=== PATIENT | female | born 1940 | race Caucasian/White ===

== ENCOUNTER 2016-05-02 08:39 | Emergency (ER) | payer MEDICARE, MEDICAID ==
[2016-05-02 10:12] LABS: ABSOLUTE NEUTROPHIL COUNT 3.9 K/mm3 (1.8-7.7); BASO % 0.2 % (0.2-1.0); HEMATOCRIT 32.4 % (37.0-47.0); HEMOGLOBIN 10.7 gm/l (12.0-16.0); IMM NEUT% 0.4 % (0-1); LYMPH % 18.7 % (15-45); MEAN CELL VOLUME 92.3 fl (81.0-99.0); MEAN CORPUSCULAR HEMOGLOBIN 30.5 pg (27.0-31.0); MONO # 0.3 (0.0-0.8); MONO % 5.4 % (4-12); NEUT % 75.3 % (43-75); PLATELET COUNT 163 K/mm3 (130-400); RED CELL DISTRIBUTION WIDTH 13.5 % (11.5-14.5)
[2016-05-02 10:29] LABS: INR 0.96; PROTHROMBIN TIME 10.1 SECONDS (9.3-11.4)
[2016-05-02 10:36] LABS: ALB/GLOB RATIO 1.8 (>1.0); ALBUMIN 3.8 gm/dL (3.5-5.7); CALCIUM 9.3 mg/dL (8.6-10.3)
--- NOTE | 2016-05-02 11:21 | CT ---
Exam: CT head without contrast COMPARISON: Multiple similar previous exams, the most recent of which was obtained on 04/06/2015 INDICATION: Left-sided weakness. TECHNIQUE: CT examination of the head was obtained without contrast. FINDINGS: There is no acute intracranial hemorrhage. There is no abnormal intra or extra-axial fluid collection. Cortical ov[place]o-white matter differentiation is maintained and there is no mass effect or midline shift. There is mild to moderate global atrophy. There is minor prominence of the ventricles which is unchanged. Small area of hypodensity just lateral to the caudate head is noted and unchanged, most compatible with remote lacunar infarct. Basal ganglia calcifications are seen. The paranasal sinuses and mastoid air cells are well aerated. IMPRESSION: No acute intracranial hemorrhage or CT evidence for acute ischemia. Report was uploaded to the EMR at 1117 hours 05/02/2016.
[2016-05-02 11:45] LABS: PH,URINE 6.5 (5.0-8.0); SPECIFIC GRAVITY 1.005 (1.001-1.030); URINE BILIRUBIN NEGATIVE (NEGATIVE); URINE BLOOD NEGATIVE (NEGATIVE); URINE GLUCOSE (UA) NEGATIVE (NEGATIVE); URINE LEUKOCYTE ESTERASE NEGATIVE (NEGATIVE); URINE NITRITE NEGATIVE (NEGATIVE); URINE PROTEIN NEGATIVE (NEGATIVE); URINE UROBILINOGEN NORMAL (0-1 mg/dl)
[2016-05-02 11:46] LABS: URINE APPEARANCE CLEAR; URINE COLOR YELLOW
== END 2016-05-02 12:45 | disposition home or self-care (01) ==
LOC: ED 08:39
DX: R20.0 Anesthesia of skin (principal); J43.9 Emphysema, unspecified; I25.2 Old myocardial infarction; E11.9 Type 2 diabetes mellitus without complications; Z79.84 Long term (current) use of oral hypoglycemic drugs

== ENCOUNTER 2016-06-02 19:19 | Emergency (ER) | payer MEDICARE, MEDICAID ==
[2016-06-02 21:04] LABS: ABSOLUTE NEUTROPHIL COUNT 2.8 K/mm3 (1.8-7.7); BASO % 0.2 % (0.2-1.0); HEMATOCRIT 29.8 % (37.0-47.0); HEMOGLOBIN 9.7 gm/l (12.0-16.0); IMM NEUT% 0.2 % (0-1); LYMPH # 1.5 (1.0-4.8); LYMPH % 32.1 % (15-45); MEAN CELL VOLUME 92.3 fl (81.0-99.0); MEAN CORPUSCULAR HGB CONC 32.6 g/dl (33.0-37.0); MEAN PLATELET VOLUME 9.2 fl (7.4-10.4); MONO # 0.3 (0.0-0.8); MONO % 7.4 % (4-12); NEUT % 60.1 % (43-75); PLATELET COUNT 151 K/mm3 (130-400); RED CELL DISTRIBUTION WIDTH 12.9 % (11.5-14.5)
[2016-06-02 21:38] LABS: ALB/GLOB RATIO 1.8 (>1.0); ALBUMIN 3.5 gm/dL (3.5-5.7); CALCIUM 9.5 mg/dL (8.6-10.3)
== END 2016-06-02 21:49 | disposition home or self-care (01) ==
LOC: ED 19:19
DX: D64.9 Anemia, unspecified (principal); R42 Dizziness and giddiness; E11.9 Type 2 diabetes mellitus without complications; I25.2 Old myocardial infarction; I48.91 Unspecified atrial fibrillation; J43.9 Emphysema, unspecified; Z79.84 Long term (current) use of oral hypoglycemic drugs; Z79.01 Long term (current) use of anticoagulants

== ENCOUNTER 2016-06-24 08:59 | Emergency (ER) | payer MEDICARE, MEDICAID ==
[2016-06-24] MEDS ORDERED: IOPAMIDOL 370 (76%) 100 ML VIAL IV ONE (09:00)
[2016-06-24] MEDS ORDERED: HYDROMORPHONE HCL 0.5 MG/0.5 ML SYRINGE ONE (09:31)
[2016-06-24] MEDS ORDERED: ONDANSETRON 4 MG/2ML 2 ML VIAL ONE (09:31)
[2016-06-24 10:17] LABS: ABSOLUTE NEUTROPHIL COUNT 3.7 K/mm3 (1.8-7.7); BASO % 0.2 % (0.2-1.0); HEMATOCRIT 32.3 % (37.0-47.0); HEMOGLOBIN 10.6 gm/l (12.0-16.0); IMM NEUT% 0.4 % (0-1); LYMPH # 0.9 (1.0-4.8); LYMPH % 19.1 % (15-45); MEAN CORPUSCULAR HEMOGLOBIN 30.2 pg (27.0-31.0); MEAN CORPUSCULAR HGB CONC 32.8 g/dl (33.0-37.0); MEAN PLATELET VOLUME 9.2 fl (7.4-10.4); MONO # 0.3 (0.0-0.8); MONO % 5.5 % (4-12); NEUT % 74.8 % (43-75); PLATELET COUNT 206 K/mm3 (130-400); RED CELL DISTRIBUTION WIDTH 13.2 % (11.5-14.5)
[2016-06-24 10:39] LABS: ALB/GLOB RATIO 1.5 (>1.0); ALBUMIN 3.8 gm/dL (3.5-5.7)
--- NOTE | 2016-06-24 11:49 | CT ---
Exam Type: ABD/PELVIS W/ CON Date and Time: 06/24/2016 9:33 AM Clinical information: Abdominal pain Comparison: CT abdomen pelvis on 516, and imaging dating back to 2006. Technique: Contiguous axial 4 mm images were obtained from the lung bases through the pelvis after the uneventful IV administration of 100 cc of Isovue-[id number]. Sagittal and coronal reformations with high resolution lung algorithm images were also obtained at this time. CT DI: 17.2 DLP 876.1 FINDINGS: Lung base : 1 cm left basilar pulmonary nodule is identified. This is seen as far back as 2006 where it measured 7 mm. Visualized heart:There is no pericardial effusion. LIVER: within normal limits. BILE DUCTS: normal caliber. GALLBLADDER: No calcified gallstones. Normal caliber wall. PANCREAS: within normal limits. SPLEEN: Cyst is again identified along the posterior aspect with areas of calcification. ADRENALS: Right adrenal gland nodule is again identified measuring 3.1 x 1.6 cm on axial image 26. The left gland is normal. KIDNEYS: Multiple probable cysts are again noted. Stomach and small BOWEL: Stomach is unremarkable. Multiple fluid-filled loops of small bowel are present with air-fluid levels worrisome for obstruction or ileus. This is not as severe as prior study of 01/27/2016. No definite transition zone is identified. Large bowel: Air and stool are noted within the large bowel. Appendix is not visualized though secondary signs of appendicitis are not seen. Much of the distal large bowel is decompressed limiting assessment. LYMPH NODES: No enlarged mesenteric lymph nodes. PERITONEUM: no ascites or free air, no fluid collection. VESSELS: Moderate to severe atherosclerotic disease. RETROPERITONEUM: within normal limits. ABDOMINAL WALL: Multiple calcified granuloma are present. Bladder: Normal. Uterus and adnexa: Surgically absent. BONES: Dextrorotatory scoliosis. Associated degenerative change. No lytic or sclerotic lesions. Compression deformity of T12 is present, not fully seen on prior imaging. This is mildly anteriorly angulated with 50% height loss. There is retropulsion of bone measuring upward 9 mm on sagittal image 56. As this deformity involves both the anterior and posterior aspect of the vertebral body this is considered a 2 column fracture and thereby unstable. IMPRESSION: Findings of probable obstruction, partial obstruction or ileus. Enteritis is possible. Overall this is not as severe as on prior CT of 02/03/2016. New compression deformity of T12 with retropulsion of bone. Approximately 50% height loss is noted. This is of unknown chronicity and correlation with patient's history would be recommended. 1 cm left posterior lower lobe nodule which was seen as far back as 2006, though measures 7 mm at that time. Consideration for follow-up exam could be made though as this is a slow growing lesion there may not be much change in 3-6 months. Other incidental findings as above. Findings were called to Dr. Fernandez at approximately 1144 hours on 06/24/2016.
== END 2016-06-24 12:10 | disposition home or self-care (01) ==
LOC: ED 08:59
DX: R10.9 Unspecified abdominal pain (principal); R11.0 Nausea; I25.2 Old myocardial infarction; I48.91 Unspecified atrial fibrillation; E11.9 Type 2 diabetes mellitus without complications; Z79.84 Long term (current) use of oral hypoglycemic drugs; Z79.82 Long term (current) use of aspirin
CPT/HCPCS: 83690; 85025; 80053; 74177; 99284 ×2; 93005; J2405; Q9967